=== PATIENT | female | born 1960 | race Caucasian/White ===

== ENCOUNTER 2020-12-31 06:12 | Day surgery (SDC) | payer BC ==
[2020-12-28 10:21] VITALS: BMI 34.3
[2020-12-31] MEDS ORDERED: ROPIVACAINE HCL 0.5% 30ML VIAL ONE (06:49)
[2020-12-31] MEDS ORDERED: MIDAZOLAM HCL 2 MG/2 ML SINGLE DOSE VIAL ONE (06:49)
[2020-12-31] MEDS ORDERED: EPINEPHrine 1:1,000 1 MG/1 ML - 30ML VIAL (INJECTION) ONE (07:12)
[2020-12-31] MEDS ORDERED: DEXAMETHASONE SOD PHOSPHATE 10 MG/1 ML VIAL ONE (07:19)
[2020-12-31] MEDS ORDERED: PROPOFOL 20 ML ONE ×2 (08:02)
[2020-12-31] MEDS ORDERED: ceFAZolin SODIUM 1 GM VIAL ONE (08:09)
[2020-12-31] MEDS ORDERED: ONDANSETRON 4 MG/2 ML VIAL ONE (08:14)
[2020-12-31] MEDS ORDERED: DEXAMETHASONE SOD PHOSPHATE 4 MG/1 ML VIAL ONE (08:14)
[2020-12-31] MEDS ORDERED: SEVOFLURANE 250 ML BTL ONE (08:19)
[2020-12-31] MEDS ORDERED: oxyCODONE HCL 5 MG TABLET PO PRN (09:15)
[2020-12-31] MEDS ORDERED: LACTATED RINGERS SOLUTION 1,000 ML IV SCH (09:15)
[2020-12-31] MEDS ORDERED: ONDANSETRON 4 MG/2 ML VIAL IVPUSH PRN (09:15)
[2020-12-31] MEDS ORDERED: ACETAMINOPHEN 500 MG TABLET (FP) PO PRN (09:15)
[2020-12-31 10:28] VITALS: BP 136/87; PULSE 89; TEMP 98
== END 2020-12-31 11:15 | disposition home or self-care (01) ==
LOC: FASU 06:12
PROVIDERS: ATTEND Orthopaedic Surgery
PROC: 0MM14ZZ Reattachment of Right Shoulder Bursa and Ligament, Percutaneous Endoscopic Approach (ICD-10-PCS; 2020-12-31)
PROC: 0PB94ZZ Excision of Right Clavicle, Percutaneous Endoscopic Approach (ICD-10-PCS; 2020-12-31)
PROC: 0RNJ4ZZ Release Right Shoulder Joint, Percutaneous Endoscopic Approach (ICD-10-PCS; 2020-12-31)
PROC: 0RNJ4ZZ Release Right Shoulder Joint, Percutaneous Endoscopic Approach (ICD-10-PCS; principal; 2020-12-31 08:37)
DX: M75.01 Adhesive capsulitis of right shoulder (principal); M75.41 Impingement syndrome of right shoulder; M19.011 Primary osteoarthritis, right shoulder; M65.811 Other synovitis and tenosynovitis, right shoulder; S43.431A Superior glenoid labrum lesion of right shoulder, initial encounter; X58.XXXA Exposure to other specified factors, initial encounter; Y92.9 Unspecified place or not applicable; Y93.9 Activity, unspecified
CPT/HCPCS: 88304-TC; 94760; J1100

== ENCOUNTER 2021-05-13 06:24 | Day surgery (SDC) | payer BC ==
[2021-05-12 10:16] VITALS: BMI 34.3
[2021-05-13] MEDS ORDERED: PROPOFOL 20 ML ONE (07:10)
[2021-05-13] MEDS ORDERED: MIDAZOLAM HCL 2 MG/2 ML SINGLE DOSE VIAL ONE ×2 (07:10→07:45)
[2021-05-13] MEDS ORDERED: LIDOCAINE HCL 1%, 10 MG/ML (20ML VIAL) ONE (07:15)
[2021-05-13] MEDS ORDERED: BUPIVACAINE HCL/PF 0.25% (2.5MG/ML) 10 ML VIAL ONE (07:15)
[2021-05-13] MEDS ORDERED: DEXAMETHASONE SOD PHOSPHATE 4 MG/1 ML VIAL ONE (07:46)
[2021-05-13] MEDS ORDERED: ONDANSETRON 4 MG/2 ML VIAL ONE (07:46)
[2021-05-13] MEDS ORDERED: ceFAZolin SODIUM 1 GM VIAL ONE (07:50)
[2021-05-13 08:25] VITALS: TEMP 97.8
[2021-05-13 09:15] VITALS: BP 122/71; PULSE 79
== END 2021-05-13 09:38 | disposition home or self-care (01) ==
LOC: FASU 06:24
PROVIDERS: ATTEND Orthopaedic Surgery
PROC: 01N50ZZ Release Median Nerve, Open Approach (ICD-10-PCS; principal; 2021-05-13 08:00)
DX: G56.02 Carpal tunnel syndrome, left upper limb (principal)